=== PATIENT | male | born 1950 | race Caucasian/White ===

== ENCOUNTER 2018-05-01 07:34 | Day surgery (SDC) | payer OTHER ==
[2018-04-30 10:15] VITALS: BMI 21.2
[2018-05-01] MEDS ORDERED: PROPOFOL 20 ML ONE ×2 (08:02)
[2018-05-01 09:37] VITALS: BP 120/67
[2018-05-01 09:41] VITALS: PULSE 67; TEMP 97.8
--- NOTE | 2018-05-02 12:17 | PATH ---
Surgical Pathology Report Patient Name: KARTIK LYONS [facility]. Rec. #: [id number] /Age/Gender: 1950 (Age: 67) / M Account: [id number] Location: [facility] Taken: 05/01/2018 Received: 05/01/2018 Reported: 05/02/2018 Physicians: Gary Dean M.D. Specimen(s) Received A: RIGHT COLON B: BX HEPATIC FLEXURE Clinical History History of polyps Postoperative diagnosis: Polyps Final Diagnosis A. COLON, RIGHT, BIOPSY: POLYPOID COLONIC MUCOSA WITH PROMINENT LYMPHOID AGGREGATES. B. COLON, HEPATIC FLEXURE, BIOPSY: TUBULAR ADENOMA. Electronically Signed Jaycee Conn M.D. Gross Description A. Received in formalin, labeled "right colon" is a kim, irregular portion of soft tissue measuring 0.4 cm. in greatest dimension. The specimen is submitted in toto in one cassette. B. Received in formalin, labeled "hepatic flexure" is a kim, irregular portion of soft tissue measuring 0.5 cm. in greatest dimension. The specimen is submitted in toto in one cassette. DL/05/01/2018 saudi/05/01/2018
== END 2018-05-01 09:41 | disposition home or self-care (01) ==
LOC: FASU-ENDO 07:34
PROVIDERS: ATTEND Internal Medicine Gastroenterology
PROC: 0DBL8ZX Excision of Transverse Colon, Via Natural or Artificial Opening Endoscopic, Diagnostic (ICD-10-PCS; principal; 2018-05-01 08:44)
DX: Z86.010 Personal history of colon polyps (principal); D12.3 Benign neoplasm of transverse colon; K63.89 Other specified diseases of intestine
CPT/HCPCS: 88305-TC